=== PATIENT | male | born 1980 | race Caucasian/White ===

== ENCOUNTER 2017-08-10 20:49 | Inpatient (IN) | payer MEDICARE, OTHER ==
[~2017-08-10] VITALS: Ht 177.8 cm; Wt 109.8 kg
[~2017-08-10 20:49] MED LIST: CITA40TA14 PO; ESZO2; HUMIRA; KETO75CA PO; OMEP20TA2 PO
[2017-08-10] MEDS ORDERED: HYDROCODONE/ACETAMINOPHEN 5-325 MG TABLET PO PRN (23:30)
[2017-08-10] MEDS ORDERED: MORPHINE SULFATE 10 MG/5 ML SOLUTION UDCUP PO PRN (23:30)
[2017-08-10] MEDS ORDERED: ACETAMINOPHEN 325 MG TABLET PO PRN ×2 (23:45)
[2017-08-10] MEDS ORDERED: DOCUSATE SODIUM 283 MG/5 ML MINI-ENEMA PR PRN (23:45)
[2017-08-11] MEDS ORDERED: ACETAMINOPHEN 325 MG TABLET PO PRN
[2017-08-11 00:05] VITALS: BP 110/68
[2017-08-11] MEDS: HYDROCODONE/ACETAMINOPHEN 10-325 MG TABLET PO PRN ×4 (00:05→15:24)
[2017-08-11 01:59] LABS: APPEARANCE,URINE CLEAR (CLEAR); BILIRUBIN,URINE NEGATIVE (NEGATIVE); GLUCOSE, URINE (UA) NEGATIVE (NEGATIVE); KETONES,URINE NEGATIVE (NEGATIVE); LEUKOCYTE ESTERASE ,URINE NEGATIVE (NEGATIVE); NITRATE,URINE NEGATIVE (NEGATIVE); OCCULT BLOOD,URINE NEGATIVE (NEGATIVE); PH,URINE 5.5 (5.0-8.0); PROTEIN,URINE NEGATIVE (NEGATIVE); UROBILINOGEN,URINE 0.2 mg/dL (<=1.0)
[2017-08-11 02:37] LABS: BACTERIA,URINE None Seen /HPF (None Seen); RBC,URINE None Seen /HPF (0-2); WBC,URINE None Seen /HPF (0-5)
[2017-08-11 02:39] LABS: CALCIUM OXALATE CRYSTALS,UR Rare /LPF (None Seen)
[2017-08-11] MEDS: OMEPRAZOLE 20 MG CAPSULE PO SCH (06:09)
[2017-08-11 07:30] VITALS: BP 114/60
[2017-08-11 08:20] LABS: BASOPHILS % (AUTO) 1.3 % (0.0-2.0); EOSINOPHILS % (AUTO) 3.1 % (1.0-6.0); HEMATOCRIT 33.2 % (41-53); LYMPHOCYTES # (AUTO) 1.2 K/uL (1.0-4.8); LYMPHOCYTES % (AUTO) 18.6 % (22.0-44.0); MEAN CORPUSCULAR HEMOGLOBIN 29.8 pg (26.0-34.0); MEAN CORPUSCULAR HGB CONC 33.2 G/dL (31.0-37.0); MEAN CORPUSCULAR VOLUME 90 fL (80-100); MONOCYTES # (AUTO) 0.5 K/uL (0.1-1.0); MONOCYTES % (AUTO) 8.1 % (2.0-9.0); NEUTROPHILS # (AUTO) 4.3 K/uL (1.8-7.7); NEUTROPHILS % (AUTO) 68.9 % (40.0-70.0); PLATELET COUNT (AUTO) 392 K/uL (150-450); RED BLOOD CELL COUNT(AUTO) 3.71 MIL/uL (4.50-5.90); RED CELL DISTRIBUTION WIDTH 16.5 % (11.5-14.5)
[2017-08-11 08:38] LABS: ALANINE AMINOTRANSFERASE 106 U/L (12-78); ALBUMIN 2.5 g/dL (3.4-5.0); ALKALINE PHOSPHATASE 796 U/L (46-116); ANION GAP 9 mmol/L (8-16); ASPARTATE AMINOTRANSFERASE 34 U/L (15-37); BILIRUBIN,TOTAL 0.7 mg/dL (0.1-1.0); CALCIUM, TOTAL 9.4 mg/dL (8.8-10.5); CARBON DIOXIDE 28 mmol/L (22-29); CHLORIDE 101 mmol/L (98-107); CREATININE 0.67 mg/dL (0.60-1.30); GLOMERULAR FILTR. RATE CALC > 60 mL/min (>60); GLUCOSE,RANDOM 100 mg/dL (70-110); SODIUM SERUM 138 mmol/L (136-145); TOTAL PROTEIN, SERUM 6.7 g/dL (6.4-8.2); UREA NITROGEN, BLOOD 14 mg/dL (7-18)
[2017-08-11] MEDS: ENOXAPARIN SODIUM 40 MG/0.4 ML PF SYRINGE SQ SCH ×2 (08:44→19:59)
[2017-08-11] MEDS: DOCUSATE SODIUM 100 MG CAPSULE PO SCH ×2 (08:44→19:58)
[2017-08-11] MEDS ORDERED: ENOXAPARIN SODIUM 30 MG/0.3 ML PF SYRINGE SQ SCH (09:00)
[2017-08-11 15:23] VITALS: BP 111/58
[2017-08-11] MEDS: SENNA 187 MG TABLET PO SCH (19:59)
[2017-08-11] MEDS: OxyCODONE HCL 10 MG ER TABLET PO SCH (19:59)
[2017-08-11 20:00] VITALS: BP 126/64
[2017-08-11] MEDS ORDERED: SENNA 187 MG TABLET PO SCH (21:00)
[2017-08-12 02:39] VITALS: BP 105/63
[2017-08-12] MEDS: OMEPRAZOLE 20 MG CAPSULE PO SCH (06:13)
[2017-08-12] MEDS: HYDROCODONE/ACETAMINOPHEN 5-325 MG TABLET PO PRN (06:16)
[2017-08-12 07:55] VITALS: BP 114/62
[2017-08-12] MEDS: DOCUSATE SODIUM 100 MG CAPSULE PO SCH ×2 (08:29→21:22)
[2017-08-12] MEDS: OxyCODONE HCL 10 MG ER TABLET PO SCH ×2 (08:30→21:22)
[2017-08-12] MEDS: ENOXAPARIN SODIUM 40 MG/0.4 ML PF SYRINGE SQ SCH ×2 (08:30→21:21)
[2017-08-12 15:28] VITALS: BP 109/61
[2017-08-12] MEDS: METHOCARBAMOL 750 MG TABLET PO SCH ×2 (15:28→21:21)
[2017-08-12] MEDS: HYDROCODONE/ACETAMINOPHEN 10-325 MG TABLET PO PRN (15:29)
[2017-08-12] MEDS: SENNA 187 MG TABLET PO SCH (21:22)
[2017-08-13 00:49] VITALS: BP 109/58
[2017-08-13] MEDS: OMEPRAZOLE 20 MG CAPSULE PO SCH (05:46)
[2017-08-13] MEDS: HYDROCODONE/ACETAMINOPHEN 5-325 MG TABLET PO PRN (05:46)
[2017-08-13 08:50] VITALS: BP 113/67
[2017-08-13] MEDS: OxyCODONE HCL 10 MG ER TABLET PO SCH ×2 (09:34→20:22)
[2017-08-13] MEDS: DOCUSATE SODIUM 100 MG CAPSULE PO SCH ×2 (09:34→20:22)
[2017-08-13] MEDS: ENOXAPARIN SODIUM 40 MG/0.4 ML PF SYRINGE SQ SCH ×2 (09:35→20:22)
[2017-08-13] MEDS: METHOCARBAMOL 750 MG TABLET PO SCH ×4 (09:35→20:22)
[2017-08-13 15:41] VITALS: BP 107/63
[2017-08-13] MEDS: SENNA 187 MG TABLET PO SCH (20:23)
[2017-08-13 23:12] VITALS: BP 114/66
[2017-08-14] MEDS: OMEPRAZOLE 20 MG CAPSULE PO SCH (06:04)
[2017-08-14 08:15] VITALS: BP 117/67
[2017-08-14] MEDS: ENOXAPARIN SODIUM 40 MG/0.4 ML PF SYRINGE SQ SCH ×2 (08:47→20:10)
[2017-08-14] MEDS: DOCUSATE SODIUM 100 MG CAPSULE PO SCH ×2 (08:47→20:10)
[2017-08-14] MEDS: METHOCARBAMOL 750 MG TABLET PO SCH ×4 (08:47→20:10)
[2017-08-14] MEDS: OxyCODONE HCL 10 MG ER TABLET PO SCH ×2 (08:47→20:10)
[2017-08-14 15:26] VITALS: BP 114/66
[2017-08-14] MEDS: TraZODone HCL 100 MG TABLET PO PRN (20:10)
[2017-08-14] MEDS: SENNA 187 MG TABLET PO SCH (20:10)
[2017-08-15 00:36] VITALS: BP 122/61
[2017-08-15] MEDS: OMEPRAZOLE 20 MG CAPSULE PO SCH (06:05)
[2017-08-15 08:02] VITALS: BP 127/65
[2017-08-15] MEDS: OxyCODONE HCL 10 MG ER TABLET PO SCH (08:30)
[2017-08-15] MEDS: ENOXAPARIN SODIUM 40 MG/0.4 ML PF SYRINGE SQ SCH (08:30)
[2017-08-15] MEDS: METHOCARBAMOL 750 MG TABLET PO SCH ×4 (08:30→20:11)
[2017-08-15] MEDS: DOCUSATE SODIUM 100 MG CAPSULE PO SCH ×2 (08:32→20:12)
[2017-08-15] MEDS: HYDROCODONE/ACETAMINOPHEN 10-325 MG TABLET PO PRN ×2 (10:21→17:16)
[2017-08-15] MEDS ORDERED: RIVAROXABAN 15 MG TABLET PO ONE (11:15)
[2017-08-15] MEDS ORDERED: OxyCODONE HCL 20 MG ER TABLET PO PRN (14:30)
[2017-08-15 15:30] VITALS: BP 107/60
[2017-08-15] MEDS: RIVAROXABAN 15 MG TABLET PO SCH (16:00)
[2017-08-15] MEDS: SENNA 187 MG TABLET PO SCH (20:14)
[2017-08-16 01:15] VITALS: BP 109/59
[2017-08-16] MEDS: HYDROCODONE/ACETAMINOPHEN 10-325 MG TABLET PO PRN (04:58)
[2017-08-16] MEDS: OMEPRAZOLE 20 MG CAPSULE PO SCH (06:08)
[2017-08-16 07:30] LABS: BASOPHILS % (AUTO) 1.1 % (0.0-2.0); EOSINOPHILS % (AUTO) 3.1 % (1.0-6.0); HEMATOCRIT 35.9 % (41-53); HEMOGLOBIN 11.8 g/dL (13.5-17.5); LYMPHOCYTES # (AUTO) 1.4 K/uL (1.0-4.8); LYMPHOCYTES % (AUTO) 22.1 % (22.0-44.0); MEAN CORPUSCULAR HEMOGLOBIN 29.5 pg (26.0-34.0); MEAN CORPUSCULAR VOLUME 89 fL (80-100); MONOCYTES # (AUTO) 0.5 K/uL (0.1-1.0); MONOCYTES % (AUTO) 7.4 % (2.0-9.0); NEUTROPHILS # (AUTO) 4.1 K/uL (1.8-7.7); NEUTROPHILS % (AUTO) 66.3 % (40.0-70.0); PLATELET COUNT (AUTO) 320 K/uL (150-450); RED BLOOD CELL COUNT(AUTO) 4.01 MIL/uL (4.50-5.90); RED CELL DISTRIBUTION WIDTH 16.2 % (11.5-14.5)
[2017-08-16 07:33] LABS: ANION GAP 10 mmol/L (8-16); CALCIUM, TOTAL 9.3 mg/dL (8.8-10.5); CARBON DIOXIDE 28 mmol/L (22-29); CHLORIDE 102 mmol/L (98-107); CREATININE 0.66 mg/dL (0.60-1.30); GLOMERULAR FILTR. RATE CALC > 60 mL/min (>60); GLUCOSE,RANDOM 102 mg/dL (70-110); POTASSIUM 3.9 mmol/L (3.5-5.1); SODIUM SERUM 140 mmol/L (136-145); UREA NITROGEN, BLOOD 14 mg/dL (7-18)
[2017-08-16 07:34] LABS: INR 1.1 (0.9-1.1); PROTHROMBIN TIME 11.9 SEC (9.4-11.6)
[2017-08-16 07:55] VITALS: BP 105/60
[2017-08-16] MEDS: RIVAROXABAN 15 MG TABLET PO SCH ×2 (08:02→16:16)
[2017-08-16] MEDS: DOCUSATE SODIUM 100 MG CAPSULE PO SCH ×2 (08:02→20:20)
[2017-08-16] MEDS: METHOCARBAMOL 750 MG TABLET PO SCH ×4 (08:03→20:20)
[2017-08-16] MEDS: OxyCODONE HCL 20 MG ER TABLET PO SCH ×2 (08:04→20:20)
[2017-08-16] MEDS ORDERED: VENLAFAXINE HCL 75 MG ER CAPSULE PO SCH (09:00)
[2017-08-16] MEDS: ONDANSETRON HCL 4 MG TABLET PO PRN (10:14)
[2017-08-16] MEDS ORDERED: OxyCODONE HCL 20 MG ER TABLET PO SCH (14:30)
[2017-08-16 15:32] VITALS: BP 113/64
[2017-08-16] MEDS: SENNA 187 MG TABLET PO SCH (20:20)
[2017-08-17 02:53] VITALS: BP 107/52
[2017-08-17] MEDS: OMEPRAZOLE 20 MG CAPSULE PO SCH (06:16)
[2017-08-17 07:00] VITALS: BP 118/62
[2017-08-17] MEDS: DOCUSATE SODIUM 100 MG CAPSULE PO SCH ×2 (08:17→20:22)
[2017-08-17] MEDS: RIVAROXABAN 15 MG TABLET PO SCH ×2 (08:17→16:09)
[2017-08-17] MEDS: METHOCARBAMOL 750 MG TABLET PO SCH ×4 (08:18→20:22)
[2017-08-17] MEDS: OxyCODONE HCL 20 MG ER TABLET PO SCH ×2 (08:18→20:22)
[2017-08-17 15:30] VITALS: BP 119/63
[2017-08-17] MEDS: SENNA 187 MG TABLET PO SCH (20:22)
[2017-08-17] MEDS: TraZODone HCL 100 MG TABLET PO PRN (20:29)
[2017-08-17] MEDS: ONDANSETRON HCL 4 MG TABLET PO PRN (20:48)
[2017-08-18 01:01] VITALS: BP 118/66
[2017-08-18] MEDS: OMEPRAZOLE 20 MG CAPSULE PO SCH (06:04)
[2017-08-18 07:41] VITALS: BP 110/57
[2017-08-18] MEDS: DOCUSATE SODIUM 100 MG CAPSULE PO SCH ×2 (07:57→20:23)
[2017-08-18] MEDS: RIVAROXABAN 15 MG TABLET PO SCH ×2 (07:57→16:26)
[2017-08-18] MEDS: METHOCARBAMOL 750 MG TABLET PO SCH ×4 (07:58→20:23)
[2017-08-18] MEDS: OxyCODONE HCL 20 MG ER TABLET PO SCH ×2 (07:58→20:23)
[2017-08-18] MEDS: MULTIVITAMINS WITH MINERALS, THERAPEUTIC TABLET PO SCH (07:58)
[2017-08-18 15:30] VITALS: BP 109/61
[2017-08-18] MEDS: SENNA 187 MG TABLET PO SCH (20:24)
[2017-08-18] MEDS: TraZODone HCL 100 MG TABLET PO PRN (20:27)
[2017-08-19] VITALS: BP 108/58
[2017-08-19] MEDS: OMEPRAZOLE 20 MG CAPSULE PO SCH (06:10)
[2017-08-19 07:15] VITALS: BP 108/67
[2017-08-19] MEDS: RIVAROXABAN 15 MG TABLET PO SCH ×2 (08:18→16:05)
[2017-08-19] MEDS: METHOCARBAMOL 750 MG TABLET PO SCH ×4 (08:18→21:35)
[2017-08-19] MEDS: OxyCODONE HCL 20 MG ER TABLET PO SCH ×2 (08:18→21:35)
[2017-08-19] MEDS: DOCUSATE SODIUM 100 MG CAPSULE PO SCH ×2 (08:19→21:35)
[2017-08-19] MEDS: MULTIVITAMINS WITH MINERALS, THERAPEUTIC TABLET PO SCH (08:19)
[2017-08-19] MEDS ORDERED: TraMADol HCL 50 MG TABLET PO PRN (09:45)
[2017-08-19] MEDS: BACLOFEN 10 MG TABLET PO PRN (13:18)
[2017-08-19 15:54] VITALS: BP 111/63
[2017-08-19] MEDS: SENNA 187 MG TABLET PO SCH (21:00)
[2017-08-19] MEDS: TraZODone HCL 100 MG TABLET PO PRN (22:58)
[2017-08-19 23:54] VITALS: BP 115/59
[2017-08-20] MEDS: OMEPRAZOLE 20 MG CAPSULE PO SCH (06:18)
[2017-08-20 08:59] VITALS: BP 104/65
[2017-08-20] MEDS: METHOCARBAMOL 750 MG TABLET PO SCH ×4 (09:00→20:22)
[2017-08-20] MEDS ORDERED: POTASSIUM CHLORIDE 20 MEQ ER TABLET PO SCH (09:00)
[2017-08-20] MEDS: DOCUSATE SODIUM 100 MG CAPSULE PO SCH ×2 (09:22→20:22)
[2017-08-20] MEDS: BACLOFEN 10 MG TABLET PO PRN (09:22)
[2017-08-20] MEDS: RIVAROXABAN 15 MG TABLET PO SCH ×2 (09:22→15:58)
[2017-08-20] MEDS: MULTIVITAMINS WITH MINERALS, THERAPEUTIC TABLET PO SCH (09:22)
[2017-08-20] MEDS: OxyCODONE HCL 20 MG ER TABLET PO SCH ×2 (09:22→20:22)
[2017-08-20 15:49] VITALS: BP 120/73
[2017-08-20] MEDS: HYDROCODONE/ACETAMINOPHEN 10-325 MG TABLET PO PRN (17:29)
[2017-08-20] MEDS: SENNA 187 MG TABLET PO SCH (20:23)
[2017-08-20 23:35] VITALS: BP 116/66
[2017-08-21] MEDS: OMEPRAZOLE 20 MG CAPSULE PO SCH (06:20)
[2017-08-21] MEDS ORDERED: TOPI25 PO (07:22)
[2017-08-21] MEDS ORDERED: MELA3TAB66 PO (07:22)
[2017-08-21] MEDS ORDERED: VENL-193 PO (07:22)
[2017-08-21] MEDS ORDERED: ERGO500014 PO (07:22)
[2017-08-21] MEDS ORDERED: MUPI1OIN5 TP (07:22)
[2017-08-21] MEDS ORDERED: DIPH25 PO (07:22)
[2017-08-21] MEDS ORDERED: PRED20 PO (07:22)
[2017-08-21] MEDS ORDERED: ESOM20CA31 PO (07:22)
[2017-08-21] MEDS ORDERED: ACET-784 PO (07:22)
[2017-08-21] MEDS ORDERED: FLUT16H NASAL (07:22)
[2017-08-21] MEDS ORDERED: EPIN0.3P3 IM (07:22)
[2017-08-21] MEDS: METHOCARBAMOL 750 MG TABLET PO SCH ×2 (09:00→13:00)
[2017-08-21] MEDS: BACLOFEN 10 MG TABLET PO PRN ×2 (09:49→13:08)
[2017-08-21] MEDS: MULTIVITAMINS WITH MINERALS, THERAPEUTIC TABLET PO SCH (09:49)
[2017-08-21] MEDS: DOCUSATE SODIUM 100 MG CAPSULE PO SCH ×2 (09:49→20:40)
[2017-08-21 09:50] VITALS: BP 113/63
[2017-08-21] MEDS: RIVAROXABAN 15 MG TABLET PO SCH ×2 (09:50→15:59)
[2017-08-21] MEDS: DEXTROMETHORPHAN HBR/QUINIDINE 20/10 MG CAPSULE PO SCH (09:50)
[2017-08-21] MEDS: OxyCODONE HCL 20 MG ER TABLET PO SCH ×2 (09:50→20:40)
[2017-08-21 15:16] VITALS: BP 114/58
[2017-08-21] MEDS: BACLOFEN 10 MG TABLET PO SCH ×2 (16:00→20:40)
[2017-08-21] MEDS: SENNA 187 MG TABLET PO SCH (20:40)
[2017-08-22 00:28] VITALS: BP 118/58
[2017-08-22] MEDS: HYDROCODONE/ACETAMINOPHEN 5-325 MG TABLET PO PRN (00:28)
[2017-08-22] MEDS: OMEPRAZOLE 20 MG CAPSULE PO SCH (05:54)
[2017-08-22 06:07] LABS: BASOPHILS % (AUTO) 1.4 % (0.0-2.0); EOSINOPHILS % (AUTO) 3.8 % (1.0-6.0); HEMATOCRIT 37.2 % (41-53); HEMOGLOBIN 12.4 g/dL (13.5-17.5); LYMPHOCYTES # (AUTO) 1.7 K/uL (1.0-4.8); LYMPHOCYTES % (AUTO) 26.9 % (22.0-44.0); MEAN CORPUSCULAR HEMOGLOBIN 29.6 pg (26.0-34.0); MEAN CORPUSCULAR HGB CONC 33.4 G/dL (31.0-37.0); MEAN CORPUSCULAR VOLUME 89 fL (80-100); MONOCYTES # (AUTO) 0.5 K/uL (0.1-1.0); NEUTROPHILS # (AUTO) 3.8 K/uL (1.8-7.7); NEUTROPHILS % (AUTO) 59.9 % (40.0-70.0); PLATELET COUNT (AUTO) 336 K/uL (150-450); RED CELL DISTRIBUTION WIDTH 15.9 % (11.5-14.5)
[2017-08-22 06:13] LABS: ANION GAP 9 mmol/L (8-16); CALCIUM, TOTAL 9.1 mg/dL (8.8-10.5); CARBON DIOXIDE 28 mmol/L (22-29); CHLORIDE 102 mmol/L (98-107); GLOMERULAR FILTR. RATE CALC > 60 mL/min (>60); GLUCOSE,RANDOM 103 mg/dL (70-110); POTASSIUM 4.1 mmol/L (3.5-5.1); SODIUM SERUM 139 mmol/L (136-145); UREA NITROGEN, BLOOD 11 mg/dL (7-18)
[2017-08-22 07:21] VITALS: BP 128/70
[2017-08-22] MEDS: DEXTROMETHORPHAN HBR/QUINIDINE 20/10 MG CAPSULE PO SCH (07:58)
[2017-08-22] MEDS: MULTIVITAMINS WITH MINERALS, THERAPEUTIC TABLET PO SCH (07:59)
[2017-08-22] MEDS: RIVAROXABAN 15 MG TABLET PO SCH ×2 (07:59→16:07)
[2017-08-22] MEDS: DOCUSATE SODIUM 100 MG CAPSULE PO SCH ×2 (07:59→20:58)
[2017-08-22] MEDS: BACLOFEN 10 MG TABLET PO SCH ×3 (08:00→20:58)
[2017-08-22] MEDS: OxyCODONE HCL 20 MG ER TABLET PO SCH ×2 (08:00→21:01)
[2017-08-22] MEDS: HYDROCODONE/ACETAMINOPHEN 10-325 MG TABLET PO PRN (13:32)
[2017-08-22 16:04] VITALS: BP 109/59
[2017-08-22] MEDS: SENNA 187 MG TABLET PO SCH (21:00)
[2017-08-23 00:51] VITALS: BP 115/61
[2017-08-23] MEDS: OMEPRAZOLE 20 MG CAPSULE PO SCH (06:23)
[2017-08-23 07:11] VITALS: BP 132/65
[2017-08-23] MEDS: DEXTROMETHORPHAN HBR/QUINIDINE 20/10 MG CAPSULE PO SCH (07:59)
[2017-08-23] MEDS: BACLOFEN 10 MG TABLET PO SCH ×3 (08:00→20:53)
[2017-08-23] MEDS: DOCUSATE SODIUM 100 MG CAPSULE PO SCH ×2 (08:00→20:53)
[2017-08-23] MEDS: RIVAROXABAN 15 MG TABLET PO SCH ×2 (08:00→16:59)
[2017-08-23] MEDS: MULTIVITAMINS WITH MINERALS, THERAPEUTIC TABLET PO SCH (08:00)
[2017-08-23] MEDS: OxyCODONE HCL 20 MG ER TABLET PO SCH ×2 (08:00→20:53)
[2017-08-23] MEDS ORDERED: SODIUM CL IRRIG SOLN BOTTLE 250 ML IRRIG ONE (09:15)
[2017-08-23 15:47] VITALS: BP 108/62
[2017-08-23] MEDS: SENNA 187 MG TABLET PO SCH (20:53)
[2017-08-23 23:54] VITALS: BP 110/62
[2017-08-24] MEDS: OMEPRAZOLE 20 MG CAPSULE PO SCH (06:07)
[2017-08-24 08:20] VITALS: BP 100/62
[2017-08-24] MEDS: OxyCODONE HCL 20 MG ER TABLET PO SCH ×2 (09:51→20:33)
[2017-08-24] MEDS: DOCUSATE SODIUM 100 MG CAPSULE PO SCH ×2 (09:51→20:33)
[2017-08-24] MEDS: BACLOFEN 10 MG TABLET PO SCH ×3 (09:52→20:34)
[2017-08-24] MEDS: MULTIVITAMINS WITH MINERALS, THERAPEUTIC TABLET PO SCH (09:52)
[2017-08-24] MEDS: DEXTROMETHORPHAN HBR/QUINIDINE 20/10 MG CAPSULE PO SCH (09:52)
[2017-08-24] MEDS: RIVAROXABAN 15 MG TABLET PO SCH ×2 (09:52→16:16)
[2017-08-24] MEDS: METHOCARBAMOL 750 MG TABLET PO PRN (12:20)
[2017-08-24] MEDS: OxyCODONE HCL 5 MG IR TABLET PO PRN ×2 (13:45→23:36)
[2017-08-24 15:03] VITALS: BP 106/64
[2017-08-24] MEDS: SENNA 187 MG TABLET PO SCH (20:34)
[2017-08-24 23:36] VITALS: BP 106/61
[2017-08-24] MEDS: TraZODone HCL 100 MG TABLET PO PRN (23:36)
[2017-08-25] MEDS: OMEPRAZOLE 20 MG CAPSULE PO SCH (06:00)
[2017-08-25 07:39] VITALS: BP 99/56
[2017-08-25] MEDS: SERTRALINE HCL 50 MG TABLET PO SCH ×2 (09:00→09:34)
[2017-08-25] MEDS: RIVAROXABAN 15 MG TABLET PO SCH ×2 (09:34→16:12)
[2017-08-25] MEDS: DOCUSATE SODIUM 100 MG CAPSULE PO SCH ×2 (09:34→20:06)
[2017-08-25] MEDS: DEXTROMETHORPHAN HBR/QUINIDINE 20/10 MG CAPSULE PO SCH (09:35)
[2017-08-25] MEDS: BACLOFEN 10 MG TABLET PO SCH ×3 (09:35→20:06)
[2017-08-25] MEDS: OxyCODONE HCL 20 MG ER TABLET PO SCH ×2 (09:35→20:06)
[2017-08-25] MEDS: MULTIVITAMINS WITH MINERALS, THERAPEUTIC TABLET PO SCH (09:35)
[2017-08-25] MEDS: OxyCODONE HCL 5 MG IR TABLET PO PRN (12:33)
[2017-08-25] MEDS ORDERED: OxyCODONE HCL/ACETAMINOPHEN 5-325 MG TABLET PO PRN (15:30)
[2017-08-25 15:37] VITALS: BP 121/73
[2017-08-25] MEDS: SENNA 187 MG TABLET PO SCH (20:06)
[2017-08-25] MEDS: TraZODone HCL 100 MG TABLET PO PRN (20:39)
[2017-08-25] MEDS: OxyCODONE HCL/ACETAMINOPHEN 10-325 MG TABLET PO PRN (22:25)
[2017-08-26 05:00] VITALS: BP 115/71
[2017-08-26] MEDS: OMEPRAZOLE 20 MG CAPSULE PO SCH (05:42)
[2017-08-26 07:52] LABS: ALBUMIN 2.7 g/dL (3.4-5.0); BILIRUBIN,TOTAL 0.5 mg/dL (0.1-1.0); TOTAL PROTEIN, SERUM 6.4 g/dL (6.4-8.2)
[2017-08-26 07:58] LABS: BILIRUBIN,DIRECT 0.2 mg/dL (0.00-0.20)
[2017-08-26 08:00] VITALS: BP 108/67
[2017-08-26] MEDS: DEXTROMETHORPHAN HBR/QUINIDINE 20/10 MG CAPSULE PO SCH (08:28)
[2017-08-26] MEDS: RIVAROXABAN 15 MG TABLET PO SCH ×2 (08:29→16:25)
[2017-08-26] MEDS: SERTRALINE HCL 50 MG TABLET PO SCH (08:29)
[2017-08-26] MEDS: MULTIVITAMINS WITH MINERALS, THERAPEUTIC TABLET PO SCH (08:29)
[2017-08-26] MEDS: BACLOFEN 10 MG TABLET PO SCH ×3 (08:29→20:17)
[2017-08-26] MEDS: DOCUSATE SODIUM 100 MG CAPSULE PO SCH ×2 (08:29→20:17)
[2017-08-26] MEDS: OxyCODONE HCL 20 MG ER TABLET PO SCH ×2 (10:18→20:17)
[2017-08-26] MEDS: OxyCODONE HCL/ACETAMINOPHEN 5-325 MG TABLET PO PRN (10:18)
[2017-08-26] MEDS ORDERED: VENL-67 PO (15:12)
[2017-08-26] MEDS ORDERED: ADAL40KI SQ (15:12)
[2017-08-26 15:22] VITALS: BP 111/60
[2017-08-26] MEDS: OxyCODONE HCL/ACETAMINOPHEN 10-325 MG TABLET PO PRN (20:17)
[2017-08-27] MEDS: TraZODone HCL 100 MG TABLET PO PRN ×2 (00:09→23:08)
[2017-08-27 01:18] VITALS: BP 108/58
[2017-08-27] MEDS: OMEPRAZOLE 20 MG CAPSULE PO SCH (05:58)
[2017-08-27] MEDS: SERTRALINE HCL 50 MG TABLET PO SCH (09:00)
[2017-08-27 09:25] VITALS: BP 104/59
[2017-08-27] MEDS: DEXTROMETHORPHAN HBR/QUINIDINE 20/10 MG CAPSULE PO SCH (09:35)
[2017-08-27] MEDS: MULTIVITAMINS WITH MINERALS, THERAPEUTIC TABLET PO SCH (09:35)
[2017-08-27] MEDS: OxyCODONE HCL/ACETAMINOPHEN 10-325 MG TABLET PO PRN ×2 (09:35→23:15)
[2017-08-27] MEDS: OxyCODONE HCL 20 MG ER TABLET PO SCH ×2 (09:36→20:25)
[2017-08-27] MEDS: RIVAROXABAN 15 MG TABLET PO SCH ×2 (09:36→16:03)
[2017-08-27] MEDS: BACLOFEN 10 MG TABLET PO SCH ×3 (09:36→20:25)
[2017-08-27] MEDS: DOCUSATE SODIUM 100 MG CAPSULE PO SCH ×2 (09:36→20:25)
[2017-08-27 15:01] VITALS: BP 107/66
[2017-08-27 23:15] VITALS: BP 116/70
[2017-08-28] MEDS: OMEPRAZOLE 20 MG CAPSULE PO SCH (05:44)
[2017-08-28 07:39] VITALS: BP 103/50
[2017-08-28] MEDS: DEXTROMETHORPHAN HBR/QUINIDINE 20/10 MG CAPSULE PO SCH ×2 (08:05→20:32)
[2017-08-28] MEDS: MULTIVITAMINS WITH MINERALS, THERAPEUTIC TABLET PO SCH (08:05)
[2017-08-28] MEDS: RIVAROXABAN 15 MG TABLET PO SCH ×2 (08:05→16:24)
[2017-08-28] MEDS: DOCUSATE SODIUM 100 MG CAPSULE PO SCH ×2 (08:05→20:33)
[2017-08-28] MEDS: OxyCODONE HCL 20 MG ER TABLET PO SCH ×2 (08:06→20:32)
[2017-08-28] MEDS: BACLOFEN 10 MG TABLET PO SCH ×3 (08:06→20:32)
[2017-08-28] MEDS: SERTRALINE HCL 50 MG TABLET PO SCH (08:08)
[2017-08-28 16:23] VITALS: BP 107/68
[2017-08-28] MEDS: TraZODone HCL 100 MG TABLET PO PRN (23:20)
[2017-08-28 23:21] VITALS: BP 118/69
[2017-08-28] MEDS: OxyCODONE HCL/ACETAMINOPHEN 10-325 MG TABLET PO PRN (23:21)
[2017-08-29] MEDS: OMEPRAZOLE 20 MG CAPSULE PO SCH (05:41)
[2017-08-29 06:48] LABS: BASOPHILS % (AUTO) 1.1 % (0.0-2.0); EOSINOPHILS % (AUTO) 4.5 % (1.0-6.0); HEMATOCRIT 36.6 % (41-53); HEMOGLOBIN 12.3 g/dL (13.5-17.5); LYMPHOCYTES # (AUTO) 1.6 K/uL (1.0-4.8); LYMPHOCYTES % (AUTO) 30.5 % (22.0-44.0); MEAN CORPUSCULAR HEMOGLOBIN 29.5 pg (26.0-34.0); MEAN CORPUSCULAR HGB CONC 33.5 G/dL (31.0-37.0); MEAN CORPUSCULAR VOLUME 88 fL (80-100); MONOCYTES # (AUTO) 0.4 K/uL (0.1-1.0); MONOCYTES % (AUTO) 7.1 % (2.0-9.0); NEUTROPHILS # (AUTO) 2.9 K/uL (1.8-7.7); NEUTROPHILS % (AUTO) 56.8 % (40.0-70.0); PLATELET COUNT (AUTO) 283 K/uL (150-450); RED BLOOD CELL COUNT(AUTO) 4.16 MIL/uL (4.50-5.90); RED CELL DISTRIBUTION WIDTH 15.2 % (11.5-14.5)
[2017-08-29 06:58] LABS: ANION GAP 7 mmol/L (8-16); CALCIUM, TOTAL 9.4 mg/dL (8.8-10.5); CARBON DIOXIDE 29 mmol/L (22-29); CHLORIDE 99 mmol/L (98-107); CREATININE 0.77 mg/dL (0.60-1.30); GLOMERULAR FILTR. RATE CALC > 60 mL/min (>60); GLUCOSE,RANDOM 96 mg/dL (70-110); POTASSIUM 3.9 mmol/L (3.5-5.1); SODIUM SERUM 135 mmol/L (136-145); UREA NITROGEN, BLOOD 8 mg/dL (7-18)
[2017-08-29 08:10] VITALS: BP 113/71
[2017-08-29] MEDS: DOCUSATE SODIUM 100 MG CAPSULE PO SCH ×2 (08:12→20:55)
[2017-08-29] MEDS: RIVAROXABAN 15 MG TABLET PO SCH ×2 (08:13→16:03)
[2017-08-29] MEDS: BACLOFEN 10 MG TABLET PO SCH ×3 (08:13→20:54)
[2017-08-29] MEDS: DEXTROMETHORPHAN HBR/QUINIDINE 20/10 MG CAPSULE PO SCH ×2 (08:13→20:54)
[2017-08-29] MEDS: OxyCODONE HCL 20 MG ER TABLET PO SCH ×2 (08:13→20:55)
[2017-08-29] MEDS: MULTIVITAMINS WITH MINERALS, THERAPEUTIC TABLET PO SCH (08:13)
[2017-08-29] MEDS: SERTRALINE HCL 50 MG TABLET PO SCH (08:13)
[2017-08-29] MEDS: OxyCODONE HCL/ACETAMINOPHEN 10-325 MG TABLET PO PRN (09:54)
[2017-08-29 15:30] VITALS: BP 106/58
[2017-08-29 23:30] VITALS: BP 102/63
[2017-08-30] MEDS: OMEPRAZOLE 20 MG CAPSULE PO SCH (05:43)
[2017-08-30 07:37] VITALS: BP 111/63
[2017-08-30] MEDS: RIVAROXABAN 15 MG TABLET PO SCH ×2 (08:27→16:01)
[2017-08-30] MEDS: OxyCODONE HCL 20 MG ER TABLET PO SCH ×2 (08:27→20:12)
[2017-08-30] MEDS: BACLOFEN 10 MG TABLET PO SCH ×3 (08:27→20:12)
[2017-08-30] MEDS: DEXTROMETHORPHAN HBR/QUINIDINE 20/10 MG CAPSULE PO SCH ×2 (08:27→20:12)
[2017-08-30] MEDS: MULTIVITAMINS WITH MINERALS, THERAPEUTIC TABLET PO SCH (08:27)
[2017-08-30] MEDS: DOCUSATE SODIUM 100 MG CAPSULE PO SCH ×2 (08:29→20:12)
[2017-08-30] MEDS: SERTRALINE HCL 50 MG TABLET PO SCH (09:00)
[2017-08-30] MEDS: OxyCODONE HCL/ACETAMINOPHEN 5-325 MG TABLET PO PRN (10:11)
[2017-08-30 15:40] VITALS: BP 118/72
[2017-08-31 00:24] VITALS: BP 125/69
[2017-08-31] MEDS: OMEPRAZOLE 20 MG CAPSULE PO SCH (06:06)
[2017-08-31 08:20] VITALS: BP 116/69
[2017-08-31] MEDS: MULTIVITAMINS WITH MINERALS, THERAPEUTIC TABLET PO SCH (08:58)
[2017-08-31] MEDS: DEXTROMETHORPHAN HBR/QUINIDINE 20/10 MG CAPSULE PO SCH ×2 (08:58→20:09)
[2017-08-31] MEDS: RIVAROXABAN 15 MG TABLET PO SCH ×2 (08:58→16:01)
[2017-08-31] MEDS: OxyCODONE HCL 20 MG ER TABLET PO SCH ×2 (08:58→20:09)
[2017-08-31] MEDS: DOCUSATE SODIUM 100 MG CAPSULE PO SCH ×2 (08:58→20:10)
[2017-08-31] MEDS: BACLOFEN 10 MG TABLET PO SCH ×3 (08:59→20:09)
[2017-08-31] MEDS: SERTRALINE HCL 50 MG TABLET PO SCH (08:59)
[2017-08-31] MEDS: OxyCODONE HCL/ACETAMINOPHEN 10-325 MG TABLET PO PRN (11:03)
[2017-08-31 15:44] VITALS: BP 119/70
[2017-09-01 00:34] VITALS: BP 112/63
[2017-09-01] MEDS: OMEPRAZOLE 20 MG CAPSULE PO SCH (05:50)
[2017-09-01 07:54] VITALS: BP 121/69
[2017-09-01] MEDS: DEXTROMETHORPHAN HBR/QUINIDINE 20/10 MG CAPSULE PO SCH ×2 (08:05→21:07)
[2017-09-01] MEDS: DOCUSATE SODIUM 100 MG CAPSULE PO SCH ×2 (08:05→21:07)
[2017-09-01] MEDS: MULTIVITAMINS WITH MINERALS, THERAPEUTIC TABLET PO SCH (08:05)
[2017-09-01] MEDS: BACLOFEN 10 MG TABLET PO SCH ×3 (08:05→21:07)
[2017-09-01] MEDS: SERTRALINE HCL 50 MG TABLET PO SCH (08:06)
[2017-09-01] MEDS: OxyCODONE HCL 20 MG ER TABLET PO SCH ×2 (08:06→21:07)
[2017-09-01] MEDS: RIVAROXABAN 15 MG TABLET PO SCH ×2 (08:07→16:55)
[2017-09-01 17:21] VITALS: BP 107/60
[2017-09-01] MEDS: METHOCARBAMOL 750 MG TABLET PO PRN ×2 (17:21→23:36)
[2017-09-01] MEDS: OxyCODONE HCL/ACETAMINOPHEN 5-325 MG TABLET PO PRN (18:17)
[2017-09-01 23:36] VITALS: BP 113/69
[2017-09-01] MEDS: TraZODone HCL 100 MG TABLET PO PRN (23:36)
[2017-09-02] MEDS: OMEPRAZOLE 20 MG CAPSULE PO SCH (06:19)
[2017-09-02 07:45] VITALS: BP 114/60
[2017-09-02] MEDS: MULTIVITAMINS WITH MINERALS, THERAPEUTIC TABLET PO SCH (08:04)
[2017-09-02] MEDS: RIVAROXABAN 15 MG TABLET PO SCH ×2 (08:04→16:08)
[2017-09-02] MEDS: DEXTROMETHORPHAN HBR/QUINIDINE 20/10 MG CAPSULE PO SCH ×2 (08:04→21:16)
[2017-09-02] MEDS: BACLOFEN 10 MG TABLET PO SCH ×3 (08:04→21:14)
[2017-09-02] MEDS: OxyCODONE HCL 20 MG ER TABLET PO SCH ×2 (08:04→21:15)
[2017-09-02] MEDS: DOCUSATE SODIUM 100 MG CAPSULE PO SCH ×2 (08:05→21:15)
[2017-09-02] MEDS: OxyCODONE HCL/ACETAMINOPHEN 10-325 MG TABLET PO PRN (09:53)
[2017-09-02] MEDS: METHOCARBAMOL 750 MG TABLET PO PRN ×2 (09:53→14:13)
[2017-09-02 15:31] VITALS: BP 102/52
[2017-09-02 16:05] VITALS: BP 116/69
[2017-09-03] VITALS: BP 117/58
[2017-09-03] MEDS: OMEPRAZOLE 20 MG CAPSULE PO SCH (05:45)
[2017-09-03] MEDS: METHOCARBAMOL 750 MG TABLET PO PRN ×2 (07:09→11:06)
[2017-09-03] MEDS: DOCUSATE SODIUM 100 MG CAPSULE PO SCH ×3 (09:00→21:19)
[2017-09-03] MEDS: MULTIVITAMINS WITH MINERALS, THERAPEUTIC TABLET PO SCH (09:46)
[2017-09-03] MEDS: BACLOFEN 10 MG TABLET PO SCH ×3 (09:47→21:18)
[2017-09-03] MEDS: OxyCODONE HCL 20 MG ER TABLET PO SCH ×2 (09:47→21:18)
[2017-09-03] MEDS: DEXTROMETHORPHAN HBR/QUINIDINE 20/10 MG CAPSULE PO SCH ×2 (09:47→21:18)
[2017-09-03] MEDS: RIVAROXABAN 15 MG TABLET PO SCH ×2 (09:47→17:44)
[2017-09-03] MEDS: OxyCODONE HCL/ACETAMINOPHEN 10-325 MG TABLET PO PRN (11:06)
[2017-09-03 15:31] VITALS: BP 117/65
[2017-09-03] MEDS: OxyCODONE HCL/ACETAMINOPHEN 5-325 MG TABLET PO PRN (15:37)
[2017-09-03] MEDS ORDERED: OxyCODONE HCL/ACETAMINOPHEN 10-325 MG TABLET PO PRN (17:15)
[2017-09-04] MEDS: METHOCARBAMOL 750 MG TABLET PO PRN ×2 (00:28→11:29)
[2017-09-04] MEDS: TraZODone HCL 100 MG TABLET PO PRN (00:28)
[2017-09-04 01:01] VITALS: BP 122/75
[2017-09-04] MEDS: OMEPRAZOLE 20 MG CAPSULE PO SCH (05:25)
[2017-09-04] MEDS: DEXTROMETHORPHAN HBR/QUINIDINE 20/10 MG CAPSULE PO SCH ×2 (09:59→20:38)
[2017-09-04] MEDS: MULTIVITAMINS WITH MINERALS, THERAPEUTIC TABLET PO SCH (09:59)
[2017-09-04] MEDS: BACLOFEN 10 MG TABLET PO SCH ×3 (09:59→20:38)
[2017-09-04] MEDS: DOCUSATE SODIUM 100 MG CAPSULE PO SCH ×2 (09:59→20:38)
[2017-09-04] MEDS: RIVAROXABAN 15 MG TABLET PO SCH ×2 (09:59→16:16)
[2017-09-04 10:00] VITALS: BP 112/68
[2017-09-04] MEDS: OxyCODONE HCL 20 MG ER TABLET PO SCH ×2 (10:01→20:38)
[2017-09-04 15:22] VITALS: BP 115/66
[2017-09-04 23:58] VITALS: BP 119/64
[2017-09-05] MEDS: OMEPRAZOLE 20 MG CAPSULE PO SCH (05:56)
[2017-09-05] MEDS: METHOCARBAMOL 750 MG TABLET PO PRN ×2 (05:58→12:39)
[2017-09-05 07:26] VITALS: BP 117/76
[2017-09-05] MEDS: MULTIVITAMINS WITH MINERALS, THERAPEUTIC TABLET PO SCH (08:39)
[2017-09-05] MEDS: OxyCODONE HCL 20 MG ER TABLET PO SCH ×2 (08:39→20:18)
[2017-09-05] MEDS: DEXTROMETHORPHAN HBR/QUINIDINE 20/10 MG CAPSULE PO SCH ×2 (08:39→20:19)
[2017-09-05] MEDS: DOCUSATE SODIUM 100 MG CAPSULE PO SCH ×2 (08:40→20:18)
[2017-09-05] MEDS: BACLOFEN 10 MG TABLET PO SCH ×3 (08:40→20:18)
[2017-09-05] MEDS: RIVAROXABAN 15 MG TABLET PO SCH (08:40)
[2017-09-05 15:46] VITALS: BP 105/71
[2017-09-05] MEDS: RIVAROXABAN 20 MG TABLET PO SCH (16:26)
[2017-09-06 01:11] VITALS: BP 117/67
[2017-09-06] MEDS: OMEPRAZOLE 20 MG CAPSULE PO SCH (06:05)
[2017-09-06 06:48] LABS: BASOPHILS % (AUTO) 0.8 % (0.0-2.0); EOSINOPHILS % (AUTO) 2.8 % (1.0-6.0); HEMATOCRIT 38.5 % (41-53); HEMOGLOBIN 12.8 g/dL (13.5-17.5); LYMPHOCYTES # (AUTO) 1.2 K/uL (1.0-4.8); LYMPHOCYTES % (AUTO) 20.6 % (22.0-44.0); MEAN CORPUSCULAR HGB CONC 33.3 G/dL (31.0-37.0); MEAN CORPUSCULAR VOLUME 87 fL (80-100); MONOCYTES # (AUTO) 0.3 K/uL (0.1-1.0); MONOCYTES % (AUTO) 5.9 % (2.0-9.0); NEUTROPHILS # (AUTO) 4.1 K/uL (1.8-7.7); NEUTROPHILS % (AUTO) 69.9 % (40.0-70.0); PLATELET COUNT (AUTO) 289 K/uL (150-450); RED BLOOD CELL COUNT(AUTO) 4.43 MIL/uL (4.50-5.90); RED CELL DISTRIBUTION WIDTH 15.3 % (11.5-14.5)
[2017-09-06 07:04] LABS: ALANINE AMINOTRANSFERASE 68 U/L (12-78); ALKALINE PHOSPHATASE 341 U/L (46-116); ANION GAP 10 mmol/L (8-16); ASPARTATE AMINOTRANSFERASE 37 U/L (15-37); BILIRUBIN,TOTAL 0.5 mg/dL (0.1-1.0); CALCIUM, TOTAL 9.3 mg/dL (8.8-10.5); CARBON DIOXIDE 26 mmol/L (22-29); CHLORIDE 103 mmol/L (98-107); CHOL/HDL RATIO 3.4 (4.2-7.3); CHOLESTEROL 155 mg/dL (131-200); CREATININE 0.72 mg/dL (0.60-1.30); GLOMERULAR FILTR. RATE CALC > 60 mL/min (>60); GLUCOSE,RANDOM 101 mg/dL (70-110); HDL CHOLESTEROL 45 mg/dL (40-60); LDL CHOL (CALC.) 89 mg/dL (0-130); POTASSIUM 3.8 mmol/L (3.5-5.1); SODIUM SERUM 139 mmol/L (136-145); TOTAL PROTEIN, SERUM 6.7 g/dL (6.4-8.2); TRIGLYCERIDES 104 mg/dL (15-150); UREA NITROGEN, BLOOD 7 mg/dL (7-18)
[2017-09-06 08:40] VITALS: BP 120/63
[2017-09-06] MEDS: DEXTROMETHORPHAN HBR/QUINIDINE 20/10 MG CAPSULE PO SCH ×2 (08:56→20:16)
[2017-09-06] MEDS: MULTIVITAMINS WITH MINERALS, THERAPEUTIC TABLET PO SCH (08:56)
[2017-09-06] MEDS: DOCUSATE SODIUM 100 MG CAPSULE PO SCH ×2 (08:56→20:16)
[2017-09-06] MEDS: OxyCODONE HCL 20 MG ER TABLET PO SCH ×2 (08:56→20:16)
[2017-09-06] MEDS: BACLOFEN 10 MG TABLET PO SCH ×3 (08:56→20:16)
[2017-09-06] MEDS: METHOCARBAMOL 750 MG TABLET PO PRN (09:58)
[2017-09-06] MEDS: OxyCODONE HCL/ACETAMINOPHEN 10-325 MG TABLET PO PRN (11:10)
[2017-09-06 15:33] VITALS: BP 115/72
[2017-09-06] MEDS: RIVAROXABAN 20 MG TABLET PO SCH (16:44)
[2017-09-07 00:42] VITALS: BP 121/76
[2017-09-07] MEDS: OMEPRAZOLE 20 MG CAPSULE PO SCH (06:15)
[2017-09-07 07:05] VITALS: BP 125/70
[2017-09-07] MEDS: METHOCARBAMOL 750 MG TABLET PO PRN (07:09)
[2017-09-07] MEDS: COLD CREAM, SKIN EMOLLIENT 340 GM JAR TP SCH (08:09)
[2017-09-07] MEDS: DEXTROMETHORPHAN HBR/QUINIDINE 20/10 MG CAPSULE PO SCH ×2 (08:09→20:54)
[2017-09-07] MEDS: BACLOFEN 10 MG TABLET PO SCH ×3 (08:09→20:54)
[2017-09-07] MEDS: MULTIVITAMINS WITH MINERALS, THERAPEUTIC TABLET PO SCH (08:10)
[2017-09-07] MEDS: DOCUSATE SODIUM 100 MG CAPSULE PO SCH ×2 (08:10→20:54)
[2017-09-07] MEDS: OxyCODONE HCL 20 MG ER TABLET PO SCH ×2 (08:10→20:54)
[2017-09-07] MEDS: OxyCODONE HCL/ACETAMINOPHEN 10-325 MG TABLET PO PRN (13:48)
[2017-09-07 16:45] VITALS: BP 117/67
[2017-09-07] MEDS: RIVAROXABAN 20 MG TABLET PO SCH (16:47)
[2017-09-08 00:03] VITALS: BP 126/73
[2017-09-08] MEDS: OMEPRAZOLE 20 MG CAPSULE PO SCH (06:01)
[2017-09-08] MEDS: COLD CREAM, SKIN EMOLLIENT 340 GM JAR TP SCH (08:25)
[2017-09-08] MEDS: DOCUSATE SODIUM 100 MG CAPSULE PO SCH ×2 (08:27→20:21)
[2017-09-08] MEDS: MULTIVITAMINS WITH MINERALS, THERAPEUTIC TABLET PO SCH (08:27)
[2017-09-08] MEDS: DEXTROMETHORPHAN HBR/QUINIDINE 20/10 MG CAPSULE PO SCH ×2 (08:27→20:22)
[2017-09-08] MEDS: OxyCODONE HCL 20 MG ER TABLET PO SCH ×2 (08:27→20:22)
[2017-09-08] MEDS: BACLOFEN 10 MG TABLET PO SCH ×3 (08:27→20:22)
[2017-09-08 08:30] VITALS: BP 125/68
[2017-09-08] MEDS: METHOCARBAMOL 750 MG TABLET PO PRN (09:59)
[2017-09-08] MEDS: OxyCODONE HCL/ACETAMINOPHEN 10-325 MG TABLET PO PRN (10:24)
[2017-09-08 15:34] VITALS: BP 123/83
[2017-09-08] MEDS: RIVAROXABAN 20 MG TABLET PO SCH (16:56)
[2017-09-08 23:24] VITALS: BP 125/65
[2017-09-09] MEDS: OMEPRAZOLE 20 MG CAPSULE PO SCH (06:18)
[2017-09-09 07:44] VITALS: BP 110/65
[2017-09-09] MEDS: DEXTROMETHORPHAN HBR/QUINIDINE 20/10 MG CAPSULE PO SCH ×2 (08:00→20:07)
[2017-09-09] MEDS: OxyCODONE HCL 20 MG ER TABLET PO SCH ×2 (08:00→20:07)
[2017-09-09] MEDS: DOCUSATE SODIUM 100 MG CAPSULE PO SCH ×3 (08:00→20:18)
[2017-09-09] MEDS: MULTIVITAMINS WITH MINERALS, THERAPEUTIC TABLET PO SCH (08:00)
[2017-09-09] MEDS: BACLOFEN 10 MG TABLET PO SCH ×3 (08:00→20:07)
[2017-09-09] MEDS: COLD CREAM, SKIN EMOLLIENT 340 GM JAR TP SCH (08:02)
[2017-09-09] MEDS: OxyCODONE HCL/ACETAMINOPHEN 10-325 MG TABLET PO PRN (12:07)
[2017-09-09 15:40] VITALS: BP 108/68
[2017-09-09] MEDS: RIVAROXABAN 20 MG TABLET PO SCH (16:56)
[2017-09-10 00:12] VITALS: BP 114/66
[2017-09-10] MEDS: OMEPRAZOLE 20 MG CAPSULE PO SCH (05:55)
[2017-09-10 07:21] VITALS: BP 118/69
[2017-09-10] MEDS: DEXTROMETHORPHAN HBR/QUINIDINE 20/10 MG CAPSULE PO SCH ×2 (08:05→20:28)
[2017-09-10] MEDS: DOCUSATE SODIUM 100 MG CAPSULE PO SCH ×2 (08:05→20:29)
[2017-09-10] MEDS: OxyCODONE HCL 20 MG ER TABLET PO SCH ×2 (08:05→20:28)
[2017-09-10] MEDS: MULTIVITAMINS WITH MINERALS, THERAPEUTIC TABLET PO SCH (08:05)
[2017-09-10] MEDS: BACLOFEN 10 MG TABLET PO SCH ×3 (08:05→20:28)
[2017-09-10] MEDS: COLD CREAM, SKIN EMOLLIENT 340 GM JAR TP SCH (08:11)
[2017-09-10] MEDS: METHOCARBAMOL 750 MG TABLET PO PRN (10:40)
[2017-09-10 15:40] VITALS: BP 123/62
[2017-09-10] MEDS: RIVAROXABAN 20 MG TABLET PO SCH (17:58)
[2017-09-11 00:25] VITALS: BP 121/72
[2017-09-11] MEDS: OMEPRAZOLE 20 MG CAPSULE PO SCH (06:15)
[2017-09-11 08:42] VITALS: BP 128/76
[2017-09-11] MEDS: DOCUSATE SODIUM 100 MG CAPSULE PO SCH ×2 (08:48→20:23)
[2017-09-11] MEDS: MULTIVITAMINS WITH MINERALS, THERAPEUTIC TABLET PO SCH (08:48)
[2017-09-11] MEDS: DEXTROMETHORPHAN HBR/QUINIDINE 20/10 MG CAPSULE PO SCH ×2 (08:48→20:22)
[2017-09-11] MEDS: BACLOFEN 10 MG TABLET PO SCH ×3 (08:48→20:23)
[2017-09-11] MEDS: COLD CREAM, SKIN EMOLLIENT 340 GM JAR TP SCH (08:49)
[2017-09-11] MEDS: OxyCODONE HCL 20 MG ER TABLET PO SCH ×2 (08:49→20:23)
[2017-09-11] MEDS: METHOCARBAMOL 750 MG TABLET PO PRN (08:54)
[2017-09-11 15:55] VITALS: BP 121/68
[2017-09-11] MEDS: RIVAROXABAN 20 MG TABLET PO SCH (16:27)
[2017-09-11 23:51] VITALS: BP 122/77
[2017-09-12] MEDS: OMEPRAZOLE 20 MG CAPSULE PO SCH (06:26)
[2017-09-12 07:20] VITALS: BP 119/71
[2017-09-12] MEDS: DEXTROMETHORPHAN HBR/QUINIDINE 20/10 MG CAPSULE PO SCH ×2 (08:21→20:08)
[2017-09-12] MEDS: MULTIVITAMINS WITH MINERALS, THERAPEUTIC TABLET PO SCH (08:21)
[2017-09-12] MEDS: BACLOFEN 10 MG TABLET PO SCH ×3 (08:21→20:08)
[2017-09-12] MEDS: COLD CREAM, SKIN EMOLLIENT 340 GM JAR TP SCH (08:22)
[2017-09-12] MEDS: OxyCODONE HCL 20 MG ER TABLET PO SCH ×2 (08:22→20:08)
[2017-09-12] MEDS: DOCUSATE SODIUM 100 MG CAPSULE PO SCH ×2 (08:22→20:09)
[2017-09-12 15:40] VITALS: BP 120/70
[2017-09-12] MEDS: RIVAROXABAN 20 MG TABLET PO SCH (16:08)
[2017-09-12] MEDS: OxyCODONE HCL/ACETAMINOPHEN 10-325 MG TABLET PO PRN (16:59)
[2017-09-12] MEDS ORDERED: DIATRIZOATE MEGLU/SOD 660/100 MG/ML 120 ML BOTTLE ONE (18:49)
[2017-09-12] MEDS: 0.9% SODIUM CHLORIDE 10 ML SYRINGE IVP SCH (23:30)
[2017-09-13] VITALS (7 sets, daily range): BP systolic 106–150; BP diastolic 65–85
[2017-09-13] MEDS: OMEPRAZOLE 20 MG CAPSULE PO SCH (05:54)
[2017-09-13] MEDS ORDERED: IOVERSOL 350 MG/ML 150 ML VIAL ONE (07:40)
[2017-09-13] MEDS ORDERED: SODIUM CHLORIDE 0.9% 100 ML ONE (07:41)
[2017-09-13] MEDS: ONDANSETRON HCL 4 MG TABLET PO PRN (07:48)
[2017-09-13] MEDS: 0.9% SODIUM CHLORIDE 10 ML SYRINGE IVP SCH (09:31)
[2017-09-13] MEDS: COLD CREAM, SKIN EMOLLIENT 340 GM JAR TP SCH (09:35)
[2017-09-13] MEDS: BACLOFEN 10 MG TABLET PO SCH ×3 (12:03→20:01)
[2017-09-13] MEDS: MULTIVITAMINS WITH MINERALS, THERAPEUTIC TABLET PO SCH (12:04)
[2017-09-13] MEDS: OxyCODONE HCL 20 MG ER TABLET PO SCH ×2 (12:04→20:01)
[2017-09-13] MEDS: DEXTROMETHORPHAN HBR/QUINIDINE 20/10 MG CAPSULE PO SCH ×2 (12:04→20:01)
[2017-09-13] MEDS: DOCUSATE SODIUM 100 MG CAPSULE PO SCH ×2 (12:04→20:01)
[2017-09-13] MEDS: OxyCODONE HCL/ACETAMINOPHEN 10-325 MG TABLET PO PRN (12:22)
[2017-09-13] MEDS ORDERED: LIDOCAINE HCL 3% CREAM 85 GM TUBE TP SCH (12:59)
[2017-09-13] MEDS ORDERED: LIDOCAINE HCL 3% CREAM 85 GM TUBE TP ONE (13:00)
[2017-09-13] MEDS ORDERED: SODIUM CHLORIDE 0.9% IRRIG BTL 1,000 ML IRRIG ONE (13:09)
[2017-09-13] MEDS: METHOCARBAMOL 750 MG TABLET PO PRN (15:35)
[2017-09-13] MEDS: RIVAROXABAN 20 MG TABLET PO SCH (16:31)
[2017-09-13] MEDS: LIDOCAINE HCL 4% 50 ML SOLUTION TP SCH (20:01)
[2017-09-14 00:14] VITALS: BP 106/67
[2017-09-14] MEDS: OMEPRAZOLE 20 MG CAPSULE PO SCH (06:03)
[2017-09-14 07:11] VITALS: BP 112/59
[2017-09-14] MEDS: OxyCODONE HCL 20 MG ER TABLET PO SCH ×2 (08:02→20:05)
[2017-09-14] MEDS: DOCUSATE SODIUM 100 MG CAPSULE PO SCH ×2 (08:02→20:04)
[2017-09-14] MEDS: DEXTROMETHORPHAN HBR/QUINIDINE 20/10 MG CAPSULE PO SCH ×2 (08:02→20:04)
[2017-09-14] MEDS: MULTIVITAMINS WITH MINERALS, THERAPEUTIC TABLET PO SCH (08:03)
[2017-09-14] MEDS: BACLOFEN 10 MG TABLET PO SCH ×3 (08:03→20:04)
[2017-09-14] MEDS: COLD CREAM, SKIN EMOLLIENT 340 GM JAR TP SCH (08:04)
[2017-09-14] MEDS: LIDOCAINE HCL 4% 50 ML SOLUTION TP SCH ×2 (09:00→20:04)
[2017-09-14] MEDS: METHOCARBAMOL 750 MG TABLET PO PRN (11:20)
[2017-09-14 15:22] VITALS: BP 113/63
[2017-09-14] MEDS: RIVAROXABAN 20 MG TABLET PO SCH (16:20)
[2017-09-15 00:18] VITALS: BP 129/61
[2017-09-15] MEDS: OMEPRAZOLE 20 MG CAPSULE PO SCH (06:04)
[2017-09-15 06:35] LABS: BASOPHILS % (AUTO) 0.9 % (0.0-2.0); EOSINOPHILS % (AUTO) 2.7 % (1.0-6.0); HEMATOCRIT 41.4 % (41-53); HEMOGLOBIN 13.7 g/dL (13.5-17.5); LYMPHOCYTES # (AUTO) 1.4 K/uL (1.0-4.8); LYMPHOCYTES % (AUTO) 24.8 % (22.0-44.0); MEAN CORPUSCULAR HEMOGLOBIN 28.7 pg (26.0-34.0); MEAN CORPUSCULAR HGB CONC 33.1 G/dL (31.0-37.0); MEAN CORPUSCULAR VOLUME 87 fL (80-100); MONOCYTES # (AUTO) 0.3 K/uL (0.1-1.0); MONOCYTES % (AUTO) 5.5 % (2.0-9.0); NEUTROPHILS # (AUTO) 3.8 K/uL (1.8-7.7); NEUTROPHILS % (AUTO) 66.1 % (40.0-70.0); PLATELET COUNT (AUTO) 348 K/uL (150-450); RED BLOOD CELL COUNT(AUTO) 4.77 MIL/uL (4.50-5.90); RED CELL DISTRIBUTION WIDTH 14.9 % (11.5-14.5)
[2017-09-15 07:03] LABS: ALANINE AMINOTRANSFERASE 59 U/L (12-78); ALBUMIN 3.1 g/dL (3.4-5.0); ALKALINE PHOSPHATASE 275 U/L (46-116); ANION GAP 8 mmol/L (8-16); ASPARTATE AMINOTRANSFERASE 19 U/L (15-37); BILIRUBIN,TOTAL 0.3 mg/dL (0.1-1.0); CALCIUM, TOTAL 9.6 mg/dL (8.8-10.5); CARBON DIOXIDE 29 mmol/L (22-29); CHLORIDE 104 mmol/L (98-107); CREATININE 0.76 mg/dL (0.60-1.30); GLOMERULAR FILTR. RATE CALC > 60 mL/min (>60); GLUCOSE,RANDOM 98 mg/dL (70-110); SODIUM SERUM 141 mmol/L (136-145); TOTAL PROTEIN, SERUM 7.1 g/dL (6.4-8.2); UREA NITROGEN, BLOOD 9 mg/dL (7-18)
[2017-09-15 07:28] VITALS: BP 114/64
[2017-09-15] MEDS: DEXTROMETHORPHAN HBR/QUINIDINE 20/10 MG CAPSULE PO SCH ×2 (07:49→20:17)
[2017-09-15] MEDS: DOCUSATE SODIUM 100 MG CAPSULE PO SCH ×2 (07:50→20:17)
[2017-09-15] MEDS: MULTIVITAMINS WITH MINERALS, THERAPEUTIC TABLET PO SCH (07:50)
[2017-09-15] MEDS: COLD CREAM, SKIN EMOLLIENT 340 GM JAR TP SCH (07:50)
[2017-09-15] MEDS: OxyCODONE HCL 20 MG ER TABLET PO SCH ×2 (07:50→20:17)
[2017-09-15] MEDS: BACLOFEN 10 MG TABLET PO SCH ×3 (07:50→20:17)
[2017-09-15] MEDS: LIDOCAINE HCL 4% 50 ML SOLUTION TP SCH (07:51)
[2017-09-15] MEDS: OxyCODONE HCL/ACETAMINOPHEN 10-325 MG TABLET PO PRN (11:29)
[2017-09-15 15:34] VITALS: BP 117/64
[2017-09-15] MEDS: RIVAROXABAN 20 MG TABLET PO SCH (16:36)
[2017-09-15 23:46] VITALS: BP 116/76
[2017-09-16] MEDS: OMEPRAZOLE 20 MG CAPSULE PO SCH (05:57)
[2017-09-16 07:08] VITALS: BP 117/69
[2017-09-16] MEDS: BACLOFEN 10 MG TABLET PO SCH ×3 (08:05→20:33)
[2017-09-16] MEDS: OxyCODONE HCL 20 MG ER TABLET PO SCH ×2 (08:05→20:33)
[2017-09-16] MEDS: COLD CREAM, SKIN EMOLLIENT 340 GM JAR TP SCH (08:05)
[2017-09-16] MEDS: MULTIVITAMINS WITH MINERALS, THERAPEUTIC TABLET PO SCH (08:05)
[2017-09-16] MEDS: DOCUSATE SODIUM 100 MG CAPSULE PO SCH ×2 (08:05→20:32)
[2017-09-16] MEDS: DEXTROMETHORPHAN HBR/QUINIDINE 20/10 MG CAPSULE PO SCH ×2 (08:05→20:32)
[2017-09-16] MEDS: OxyCODONE HCL/ACETAMINOPHEN 10-325 MG TABLET PO PRN (12:23)
[2017-09-16] MEDS: METHOCARBAMOL 750 MG TABLET PO PRN (12:24)
[2017-09-16 15:37] VITALS: BP 108/62
[2017-09-16] MEDS: RIVAROXABAN 20 MG TABLET PO SCH (16:42)
[2017-09-16 23:38] VITALS: BP 110/63
[2017-09-17] MEDS: OMEPRAZOLE 20 MG CAPSULE PO SCH (06:03)
[2017-09-17 07:20] VITALS: BP 109/66
[2017-09-17] MEDS: BACLOFEN 10 MG TABLET PO SCH ×3 (09:30→20:10)
[2017-09-17] MEDS: MULTIVITAMINS WITH MINERALS, THERAPEUTIC TABLET PO SCH (09:30)
[2017-09-17] MEDS: OxyCODONE HCL 20 MG ER TABLET PO SCH ×2 (09:30→20:10)
[2017-09-17] MEDS: DOCUSATE SODIUM 100 MG CAPSULE PO SCH ×2 (09:30→20:10)
[2017-09-17] MEDS: DEXTROMETHORPHAN HBR/QUINIDINE 20/10 MG CAPSULE PO SCH ×2 (09:30→20:10)
[2017-09-17] MEDS: COLD CREAM, SKIN EMOLLIENT 340 GM JAR TP SCH (09:32)
[2017-09-17] MEDS: LIDOCAINE HCL 4% 50 ML SOLUTION TP SCH ×2 (09:32→18:53)
[2017-09-17 15:14] VITALS: BP 116/61
[2017-09-17] MEDS: RIVAROXABAN 20 MG TABLET PO SCH (16:45)
[2017-09-17 23:13] VITALS: BP 122/70
[2017-09-18] MEDS: OMEPRAZOLE 20 MG CAPSULE PO SCH (06:00)
[2017-09-18 09:00] VITALS: BP 120/65
[2017-09-18] MEDS: DOCUSATE SODIUM 100 MG CAPSULE PO SCH ×3 (09:54→20:15)
[2017-09-18] MEDS: DEXTROMETHORPHAN HBR/QUINIDINE 20/10 MG CAPSULE PO SCH ×2 (09:54→20:10)
[2017-09-18] MEDS: MULTIVITAMINS WITH MINERALS, THERAPEUTIC TABLET PO SCH (09:54)
[2017-09-18] MEDS: BACLOFEN 10 MG TABLET PO SCH ×3 (09:54→20:10)
[2017-09-18] MEDS: OxyCODONE HCL 20 MG ER TABLET PO SCH ×2 (09:55→20:11)
[2017-09-18] MEDS: COLD CREAM, SKIN EMOLLIENT 340 GM JAR TP SCH (09:56)
[2017-09-18 15:01] VITALS: BP 118/69
[2017-09-18] MEDS: RIVAROXABAN 20 MG TABLET PO SCH (16:02)
[2017-09-19 00:27] VITALS: BP 124/68
[2017-09-19] MEDS: OMEPRAZOLE 20 MG CAPSULE PO SCH (05:51)
[2017-09-19 07:14] VITALS: BP 110/62
[2017-09-19] MEDS: MULTIVITAMINS WITH MINERALS, THERAPEUTIC TABLET PO SCH (07:56)
[2017-09-19] MEDS: DOCUSATE SODIUM 100 MG CAPSULE PO SCH ×2 (07:56→20:06)
[2017-09-19] MEDS: DEXTROMETHORPHAN HBR/QUINIDINE 20/10 MG CAPSULE PO SCH ×2 (07:57→20:05)
[2017-09-19] MEDS: BACLOFEN 10 MG TABLET PO SCH ×3 (07:57→20:05)
[2017-09-19] MEDS: OxyCODONE HCL 20 MG ER TABLET PO SCH ×2 (07:57→20:05)
[2017-09-19] MEDS: COLD CREAM, SKIN EMOLLIENT 340 GM JAR TP SCH (07:57)
[2017-09-19 16:00] VITALS: BP 111/72
[2017-09-19] MEDS: RIVAROXABAN 20 MG TABLET PO SCH (16:16)
[2017-09-20] VITALS: BP 116/66
[2017-09-20] MEDS ORDERED: RIVA20TA PO (00:01)
[2017-09-20] MEDS ORDERED: DSS100 PO (00:01)
[2017-09-20] MEDS ORDERED: MULT-1239 PO (00:01)
[2017-09-20] MEDS ORDERED: OXYC20 PO (00:01)
[2017-09-20] MEDS ORDERED: OMEP20 PO (00:01)
[2017-09-20] MEDS ORDERED: DEXT1CAP3 PO (00:01)
[2017-09-20] MEDS ORDERED: ALBO180CR TP (00:01)
[2017-09-20] MEDS ORDERED: LIDO40SO4 TP (00:01)
[2017-09-20] MEDS ORDERED: BACL10TA PO (00:01)
[2017-09-20] MEDS ORDERED: MET750 PO (00:09)
[2017-09-20] MEDS ORDERED: PERCT10 PO (00:09)
[2017-09-20] MEDS: OMEPRAZOLE 20 MG CAPSULE PO SCH (06:09)
[2017-09-20 07:06] VITALS: BP 113/64
[2017-09-20] MEDS: LIDOCAINE HCL 4% 50 ML SOLUTION TP SCH (08:14)
[2017-09-20] MEDS: BACLOFEN 10 MG TABLET PO SCH ×3 (08:14→20:43)
[2017-09-20] MEDS: OxyCODONE HCL 20 MG ER TABLET PO SCH ×2 (08:14→20:44)
[2017-09-20] MEDS: DEXTROMETHORPHAN HBR/QUINIDINE 20/10 MG CAPSULE PO SCH ×2 (08:15→20:44)
[2017-09-20] MEDS: DOCUSATE SODIUM 100 MG CAPSULE PO SCH ×2 (08:15→20:44)
[2017-09-20] MEDS: MULTIVITAMINS WITH MINERALS, THERAPEUTIC TABLET PO SCH (08:15)
[2017-09-20] MEDS: COLD CREAM, SKIN EMOLLIENT 340 GM JAR TP SCH (08:15)
[2017-09-20 15:00] VITALS: BP 114/70
[2017-09-20] MEDS: RIVAROXABAN 20 MG TABLET PO SCH (16:01)
[2017-09-20 23:43] VITALS: BP 114/77
[2017-09-21] MEDS: OMEPRAZOLE 20 MG CAPSULE PO SCH (05:55)
[2017-09-21 09:05] VITALS: BP 119/66
[2017-09-21] MEDS: DEXTROMETHORPHAN HBR/QUINIDINE 20/10 MG CAPSULE PO SCH (10:01)
[2017-09-21] MEDS: MULTIVITAMINS WITH MINERALS, THERAPEUTIC TABLET PO SCH (10:01)
[2017-09-21] MEDS: DOCUSATE SODIUM 100 MG CAPSULE PO SCH (10:02)
[2017-09-21] MEDS: BACLOFEN 10 MG TABLET PO SCH (10:02)
[2017-09-21] MEDS: COLD CREAM, SKIN EMOLLIENT 340 GM JAR TP SCH (10:10)
[2017-09-21 15:30] VITALS: BP 123/76
[2017-09-21] MEDS: OxyCODONE HCL 20 MG ER TABLET PO SCH (15:45)
== END 2017-09-21 15:50 | disposition home health service (06) | DRG 963 ==
LOC: 2WR 22:00 → UNDODISIN 09-21 14:35
PROVIDERS: ATTEND Physical Medicine & Rehabilitation
PROC: 0HB7XZZ Excision of Abdomen Skin, External Approach (ICD-10-PCS; principal; 2017-09-12)
DX: S72.142A Displaced intertrochanteric fracture of left femur, initial encounter for closed fracture (principal); E43 Unspecified severe protein-calorie malnutrition; S32.302A Unspecified fracture of left ilium, initial encounter for closed fracture; F33.2 Major depressive disorder, recurrent severe without psychotic features; I82.432 Acute embolism and thrombosis of left popliteal vein; S36.593A Other injury of sigmoid colon, initial encounter; R13.10 Dysphagia, unspecified; S82.001A Unspecified fracture of right patella, initial encounter for closed fracture; I82.491 Acute embolism and thrombosis of other specified deep vein of right lower extremity; S72.302A Unspecified fracture of shaft of left femur, initial encounter for closed fracture; T23.201A Burn of second degree of right hand, unspecified site, initial encounter; B95.61 Methicillin susceptible Staphylococcus aureus infection as the cause of diseases classified elsewhere; D64.9 Anemia, unspecified; R26.9 Unspecified abnormalities of gait and mobility; F43.12 Post-traumatic stress disorder, chronic; K21.9 Gastro-esophageal reflux disease without esophagitis; F41.9 Anxiety disorder, unspecified; G89.4 Chronic pain syndrome; K59.00 Constipation, unspecified; I10 Essential (primary) hypertension; M45.9 Ankylosing spondylitis of unspecified sites in spine; M62.838 Other muscle spasm; T21.02XA Burn of unspecified degree of abdominal wall, initial encounter; Z90.49 Acquired absence of other specified parts of digestive tract; Z93.3 Colostomy status; Z82.49 Family history of ischemic heart disease and other diseases of the circulatory system; Z80.0 Family history of malignant neoplasm of digestive organs; Z79.01 Long term (current) use of anticoagulants; Z68.34 Body mass index [BMI] 34.0-34.9, adult; Z91.030 Bee allergy status; Z79.899 Other long term (current) drug therapy
CPT/HCPCS: 73551; 73552; 74177; 83735; 84134; 87070; 87081; 87147; 87205; 93970; 97110; 97112; 97116; 97140; 97163; 97167; 97530; 97535; 97760; 99366; J1650; J7050; Q0162